=== PATIENT | female | born 1975 | race Caucasian/White ===

== ENCOUNTER 2016-09-14 16:01 | Emergency (ER) | payer BC ==
[2016-09-14 16:08] VITALS: BP 109/69; PULSE 73; RESP 20; TEMP 98.1; O2SAT 100
[2016-09-14] MEDS ORDERED: LIDOCAINE HCL 1% 50 ML VIAL INFIL ONE (16:15)
[2016-09-14] MEDS ORDERED: TETANUS/DIPHTHERIA TOXOID ADULT 0.5 ML VIAL IM ONE (16:15)
[2016-09-14] MEDS ORDERED: CIPR-9 PO (16:34)
--- NOTE | 2016-09-14 16:36 | PD ---
HPI . Fish hook in toe Chief Complaint: Foreign Body Time Seen by Provider: 16:07 Travel History International Travel<30 days: No Contact w/Intl Traveler<30days: No Traveled to known affect area: No History of Present Illness HPI Patient presents with the chief complaint of a fish hook in her right second toe. She states that she was boogie boarding and inadvertently stepped on a fishhook ocean. She does not know the date of her last tetanus shot. She is allergic to penicillin. Her pain is exacerbated by movement of the foot. There are no relieving factors. Associated pain as moderate. PFSH Past Medical History ?: Not Social History Alcohol Use: No Tobacco Use: No Substance Use: No Allergies-Medications (Allergen,Severity, Reaction): Coded Allergies: Penicillin (Verified Allergy, Intermediate, 09/14/16) Cipro (Verified Allergy, Unknown, 09/14/16) Reported Meds & Prescriptions Reported Meds & Active Scripts Active No Active Prescriptions or Reported Medications Review of Systems Except as stated in HPI: all other systems reviewed are Neg Skin: Positive Other (foreign body) Physical Exam Narrative GENERAL: Awake and alert and in no acute distress. SKIN: Warm and dry. She has a fishhook impaled in the car surface of the right second toe. It is a treble hook. One hook is impaled. HEAD: Atraumatic. Normocephalic. EYES: Pupils equal and round. NECK: Trachea midline. CARDIOVASCULAR: Regular rate and rhythm. RESPIRATORY: No accessory muscle use. MUSCULOSKELETAL: No obvious deformities. No edema. NEUROLOGICAL: Awake and alert. No obvious cranial nerve deficits. Motor grossly within normal limits. Normal speech. PSYCHIATRIC: Appropriate mood and affect; insight and judgment normal. Data Data Last Documented VS Vital Signs Date Time Temp Pulse Resp B/P Pulse Ox O2 Delivery O2 Flow Rate FiO2 09/14/16 16:08 98.1 73 20 109/69 100 Orders Lidocaine 1% Inj (50 Ml) (Xylocaine 1% I (09/14/16 16:15) Tetanus/Diphtheria Tox Adult (Tetanus/Di (09/14/16 16:15) MDM Medical Decision Making Medical Screen Exam Complete: Yes Emergency Medical Condition: Yes Differential Diagnosis Differential diagnosis includes but is not limited to simple foreign body, foreign body with wound infection, foreign body with cellulitis, foreign body with neurovascular compromise. Narrative Course Patient presents for treatment of a foreign body in her right toe. The patient is concerned about antibiotics and some exposure. She seems to be a very reliable patient. We will give her a prescription for Cipro but tell her not to start it and less she develops any signs or symptoms of infection. Tetanus has been updated. Procedures Procedure Narrative Following identification of the correct patient and the correct site, the area was cleaned with alcohol and then locally anesthetized with 1% lidocaine. The anthony of the hook was pushed through the skin. The anthony was cut with a wire drawing die maker. The hook was then pulled back through the skin. She tolerated this well without complication. Diagnosis Primary Impression: Foreign body in foot, right Qualified Code: S90.851A - Foreign body in foot, right, initial encounter Patient Instructions: General Instructions, Soft Tissue Foreign Body (ED) Additional Instructions: Start antibiotics for increased redness, pain, drainage, warmth, fever. Med/Other Pt SpecificInfo: Prescription(s) given Scripts Ciprofloxacin (Cipro)500 Mg Qji374 Mg PO BID 10 Days Ref 0 Prov:Jazzmine Mendoza MD 09/14/16 Disposition: 01 DISCHARGE HOME Condition: Stable Jazzmine Mendoza MD Sep 14, 2016 16:36
[2016-09-14] MEDS ORDERED: CEPH-460 PO (16:42)
== END 2016-09-14 16:51 | disposition home or self-care (01) ==
LOC: PHEFT 16:01
DX: S90.454A Superficial foreign body, right lesser toe(s), initial encounter (principal); Z23 Encounter for immunization; W45.8XXA Other foreign body or object entering through skin, initial encounter; Y93.18 Activity, surfing, windsurfing and boogie boarding; Y92.832 Beach as the place of occurrence of the external cause
CPT/HCPCS: 28190; 90471; 90714